=== PATIENT | female | born 1975 | race Caucasian/White ===

== ENCOUNTER 2023-02-21 09:18 | Emergency (ER) | payer BC ==
[~2023-02-21] VITALS: Ht 162.6 cm; Wt 67.7 kg
[2023-02-21 09:22] VITALS: BP 108/67; PULSE 65; RESP 18; O2SAT 98
[2023-02-21] MEDS ORDERED: SODIUM CHLORIDE 0.9% 1,000 ML IV ONE (13:00)
[2023-02-21] MEDS ORDERED: KETOROLAC TROMETH 30 MG/ML 1ML VIAL IV ONE (13:00)
[2023-02-21] MEDS ORDERED: METOCLOPRAMIDE HCL 5MG/ml INJ 2ml VIAL IV ONE (13:00)
== END 2023-02-21 13:46 | disposition left against medical advice (07) ==
LOC: ER 09:18
DX: S30.0XXA Contusion of lower back and pelvis, initial encounter (principal); Z90.49 Acquired absence of other specified parts of digestive tract; Z90.710 Acquired absence of both cervix and uterus; V92.09XA Drowning and submersion due to fall off unspecified watercraft, initial encounter; Y93.89 Activity, other specified; Y92.89 Other specified places as the place of occurrence of the external cause; Y99.8 Other external cause status
CPT/HCPCS: J1885